=== PATIENT | male | born 1955 | race Caucasian/White ===

== ENCOUNTER 2020-07-18 10:20 | Outpatient (CLI) | payer OTHER | END 2020-07-18 10:21 | disposition home or self-care (01) | LOC: LAB 10:20 | DX: B97.29 Other coronavirus as the cause of diseases classified elsewhere (principal); Z11.59 Encounter for screening for other viral diseases; R50.9 Fever, unspecified; R05 Cough; Z20.828 Contact with and (suspected) exposure to other viral communicable diseases ==